=== PATIENT | female | born 1955 | race Caucasian/White ===

== ENCOUNTER 2024-07-06 20:06 | Emergency (ER) | payer MEDICARE, OTHER ==
[~2024-07-06] VITALS: Ht 170.2 cm; Wt 63.5 kg
[2024-07-06] MEDS ORDERED: SERT50TA PO (20:53)
[2024-07-06] MEDS ORDERED: SERT25TA PO (20:53)
[2024-07-06] MEDS ORDERED: LISI20TA30 PO (20:53)
[2024-07-06 21:32] LABS: BASOPHILS # (AUTO) 0.1 K/uL (0.0-0.2); BASOPHILS % (AUTO) 0.7 % (0.0-2.0); EOSINOPHILS # (AUTO) 0.2 K/uL (0.0-0.7); EOSINOPHILS % (AUTO) 3.3 % (0.0-6.0); HEMATOCRIT 42 % (33-45); HEMOGLOBIN 14.1 g/dL (11.5-14.8); MEAN CORPUSCULAR HEMOGLOBIN 31 PG (26.0-33.0); MEAN CORPUSCULAR HGB CONC 33 g/dl (31.0-36.0); MEAN CORPUSCULAR VOLUME 93 fL (82-100); MONOCYTES # (AUTO) 0.6 K/uL (0.1-1.30); MONOCYTES % (AUTO) 8.6 % (2.0-12.0); NEUTROPHILS # (AUTO) 4.4 K/uL (1.8-8.9); NEUTROPHILS % (AUTO) 60.4 % (43.0-81.0); PLATELET COUNT (AUTO) 247 K/uL (150-450); RED BLOOD CELL COUNT(AUTO) 4.52 MIL/uL (4.0-5.2); RED CELL DISTRIBUTION WIDTH 19.6 % (11.5-15.0); WHITE BLOOD COUNT (AUTO) 7.4 K/uL (4.3-11.0)
[2024-07-06 21:41] LABS: APPEARANCE,URINE Clear (CLEAR); BILIRUBIN,URINE Negative (NEGATIVE); BLOOD, URINE Negative Ery/uL (NEGATIVE); COLOR,URINE YELLOW (YELLOW); KETONES,URINE Negative (NEGATIVE); LEUKOCYTE ESTERASE ,URINE Trace (NEGATIVE); NITRITE, URINE Positive (NEGATIVE); PROTEIN,URINE Negative (NEGATIVE); UGLUCOSE Negative (NEGATIVE); UROBILINOGEN,URINE 0.2 EU/dL (0.2)
[2024-07-06 21:43] LABS: CALCIUM, SERUM 9.1 mg/dL (8.5-10.1); CARBON DIOXIDE 30 mmol/L (21-32); CHLORIDE 103 mmol/L (98-107); CREATININE 0.7 mg/dL (0.6-1.3); GLUCOSE 108 mg/dL (74-106); POTASSIUM 3.3 mmol/L (3.5-5.1); SODIUM SERUM 139 mmol/L (136-145); UREA NITROGEN, BLOOD 13 mg/dL (7-18)
[2024-07-06 21:45] LABS: ADD URINE CULTURE YES; BACTERIA,URINE 2+ /HPF (None Seen); MUCUS,URINE Few /LPF (None Seen); RBC,URINE 0-2 /HPF (0-2); URINE AMORPHOUS URATE Few /HPF (None Seen)
[2024-07-06 21:50] LABS: ALANINE AMINOTRANSFERASE 14 U/L (12-78); ALCOHOL, BLOOD 139 mg/dL (0-10); ALKALINE PHOSPHATASE 89 U/L (46-116); ASPARTATE AMINOTRANSFERASE 18 U/L (15-37); BILIRUBIN,DIRECT 0.1 mg/dL (0.0-0.2); BILIRUBIN,TOTAL 0.3 mg/dL (0.2-1.0); SALICYLATE 3.4 mg/dL (2.8-20.0)
[2024-07-06 21:51] LABS: ACETAMINOPHEN <10 ug/ml (10-30); ALBUMIN < 3.4 g/dL (3.4-5.0)
[2024-07-06 22:10] LABS: AMPHETAMINE, URINE NEGATIVE (NEGATIVE); BARBITURATE, URINE NEGATIVE (NEGATIVE); BENZODIAZEPINE, URINE NEGATIVE (NEGATIVE); CANNABINOID, URINE NEGATIVE (NEGATIVE); COCCAINE, URINE NEGATIVE (NEGATIVE); OPIATE, URINE NEGATIVE (NEGATIVE); PHENCYCLIDINE SCREEN,URINE NEGATIVE (NEGATIVE)
[2024-07-06] MEDS ORDERED: CEPHALEXIN MONOHYDRATE 500 MG CAPSULE PO ONE (22:41)
[2024-07-06] MEDS ORDERED: POTASSIUM CHLORIDE 20 MEQ TAB.PRT.SR PO ONE (22:41)
[2024-07-06] MEDS: CEPHALEXIN MONOHYDRATE 500 MG CAPSULE PO ONE (22:47)
[2024-07-06] MEDS: POTASSIUM CHLORIDE 20 MEQ TAB.PRT.SR PO ONE (22:47)
[2024-07-07 10:00] VITALS: TEMP 98.4
[2024-07-07 11:00] VITALS: BP 141/76; O2SAT 98
== END 2024-07-07 13:56 ==
LOC: ER 20:08
DX: S09.8XXD Other specified injuries of head, subsequent encounter (principal); I10 Essential (primary) hypertension; Z48.02 Encounter for removal of sutures; Z76.0 Encounter for issue of repeat prescription; Z20.822 Contact with and (suspected) exposure to COVID-19; X58.XXXD Exposure to other specified factors, subsequent encounter
CPT/HCPCS: 36415; 80048-TC; 80076-TC; 81001; 85025-TC; 87086-TC; G0480

== ENCOUNTER 2025-04-17 11:56 | Inpatient (IN) | payer MEDICARE, OTHER ==
[~2025-04-17] VITALS: Ht 167.6 cm; Wt 62.7 kg
[~2025-04-17 11:56] MED LIST: LISI20TA30 PO; SERT25TA PO; SERT50TA PO
[2025-04-17 12:28] LABS: APPEARANCE,URINE CLEAR (CLEAR); BILIRUBIN,URINE Negative (NEGATIVE); BLOOD, URINE Trace-intact Ery/uL (NEGATIVE); COLOR,URINE YELLOW (YELLOW); KETONES,URINE Negative (NEGATIVE); LEUKOCYTE ESTERASE ,URINE Moderate (NEGATIVE); NITRITE, URINE POSITIVE (NEGATIVE); PH,URINE 5.5 (5.0-8.0); PROTEIN,URINE Negative (NEGATIVE); UGLUCOSE Negative (NEGATIVE); UROBILINOGEN,URINE 0.2 EU/dL (0.2)
[2025-04-17] MEDS ORDERED: SERT50TA12 PO (12:29)
[2025-04-17] MEDS ORDERED: ERGO500093 PO (12:29)
[2025-04-17] MEDS ORDERED: AMLO-212 PO (12:29)
[2025-04-17] MEDS ORDERED: LISI10TA29 PO (12:29)
[2025-04-17] MEDS ORDERED: CELE-85 PO (12:29)
[2025-04-17 12:37] LABS: ADD URINE CULTURE YES; BACTERIA,URINE Many /HPF (None Seen); SQUAMOUS EPITHELIAL CELL,UR Few /HPF (None Seen); WBC,URINE 21-50 /HPF (0-3)
[2025-04-17 12:39] LABS: BASOPHILS % (AUTO) 0.9 % (0.0-2.0); EOSINOPHILS # (AUTO) 0.1 K/uL (0.0-0.7); EOSINOPHILS % (AUTO) 1.3 % (0.0-6.0); HEMATOCRIT 39 % (33-45); HEMOGLOBIN 13.5 g/dL (11.5-14.8); LYMPHOCYTES # (AUTO) 1.1 K/uL (0.8-4.8); LYMPHOCYTES % (AUTO) 24.6 % (20.0-44.0); MEAN CORPUSCULAR HEMOGLOBIN 33 PG (26.0-33.0); MEAN CORPUSCULAR HGB CONC 35 g/dl (31.0-36.0); MEAN CORPUSCULAR VOLUME 94 fL (82-100); MONOCYTES # (AUTO) 0.4 K/uL (0.1-1.30); MONOCYTES % (AUTO) 9.3 % (2.0-12.0); NEUTROPHILS % (AUTO) 63.9 % (43.0-81.0); PLATELET COUNT (AUTO) 223 K/uL (150-450); RED BLOOD CELL COUNT(AUTO) 4.14 MIL/uL (4.0-5.2); WHITE BLOOD COUNT (AUTO) 4.6 K/uL (4.3-11.0)
[2025-04-17 12:43] LABS: AMPHETAMINE, URINE NEGATIVE (NEGATIVE); BARBITURATE, URINE NEGATIVE (NEGATIVE); BENZODIAZEPINE, URINE NEGATIVE (NEGATIVE); CANNABINOID, URINE NEGATIVE (NEGATIVE); COCCAINE, URINE NEGATIVE (NEGATIVE); OPIATE, URINE NEGATIVE (NEGATIVE); PHENCYCLIDINE SCREEN,URINE NEGATIVE (NEGATIVE)
[2025-04-17 12:45] LABS: CALCIUM, SERUM 8.3 mg/dL (8.5-10.1); CARBON DIOXIDE 25 mmol/L (21-32); CHLORIDE 105 mmol/L (98-107); CREATININE 0.8 mg/dL (0.6-1.3); GLUCOSE 85 mg/dL (74-106); SODIUM SERUM 142 mmol/L (136-145); UREA NITROGEN, BLOOD 21 mg/dL (7-18)
[2025-04-17] MEDS ORDERED: NITROFURANTOIN/MONOHYDRATE MACROCRYSTALS 100 MG CAPSULE ONE (12:57)
[2025-04-17 12:59] LABS: ALANINE AMINOTRANSFERASE 12 U/L (12-78); ALBUMIN 3.5 g/dL (3.4-5.0); ALCOHOL, BLOOD 200 mg/dL (0-10); ALKALINE PHOSPHATASE 80 U/L (46-116); ASPARTATE AMINOTRANSFERASE 21 U/L (15-37); BILIRUBIN,DIRECT 0.2 mg/dL (0.0-0.2); BILIRUBIN,TOTAL 0.9 mg/dL (0.2-1.0); TOTAL PROTEIN, SERUM 6.7 g/dL (6.4-8.2)
[2025-04-17 13:00] LABS: SALICYLATE 1.6 mg/dL (2.8-20.0)
[2025-04-17 13:01] LABS: ACETAMINOPHEN <10 ug/ml (10-30)
[2025-04-17] MEDS: NITROFURANTOIN/MONOHYDRATE MACROCRYSTALS 100 MG CAPSULE PO ONE (13:01)
[2025-04-17] MEDS ORDERED: ACETAMINOPHEN 325 MG TABLET PO PRN (21:00)
[2025-04-17] MEDS ORDERED: MAG HYDROX/AL HYDROX/SIMETH 30 ML UDC PO PRN (21:00)
[2025-04-17] MEDS ORDERED: LORAZEPAM 0.5 MG TABLET PO PRN ×2 (21:00)
[2025-04-17] MEDS ORDERED: MAGNESIUM HYDROXIDE 30 ML UDC PO PRN (21:00)
[2025-04-17] MEDS ORDERED: TEMAZEPAM 7.5 MG CAPSULE PO PRN ×2 (21:00)
[2025-04-17 21:40] VITALS: BP 166/103; TEMP 98.1; O2SAT 96
[2025-04-17] MEDS: BLOOD SUGAR DIAGNOSTIC 1 EACH STRIP IN ONE (21:40)
[2025-04-17] MEDS: AMLODIPINE BESYLATE 5 MG TABLET PO SCH (21:59)
[2025-04-17] MEDS: POTASSIUM CHLORIDE 10 MEQ TABLET.SA PO SCH (22:10)
[2025-04-18 07:57] LABS: ALBUMIN 3.7 g/dL (3.4-5.0); BILIRUBIN,TOTAL 0.9 mg/dL (0.2-1.0); CALCIUM, SERUM 8.6 mg/dL (8.5-10.1); CREATININE 0.5 mg/dL (0.6-1.3); POTASSIUM 3.2 mmol/L (3.5-5.1); TOTAL PROTEIN, SERUM 6.7 g/dL (6.4-8.2)
[2025-04-18 08:00] VITALS: BP 140/83; TEMP 97.6; O2SAT 97
[2025-04-18 08:02] LABS: CHOLESTEROL 172 mg/dL (<200); HDL CHOLESTEROL 121 mg/dL (40-60); LDL 30 mg/dL (0-99); TRIGLYCERIDES 83 mg/dL (30-150)
[2025-04-18] MEDS: FOLIC ACID 1 MG TABLET PO SCH (09:05)
[2025-04-18] MEDS: THIAMINE HCL 100 MG TABLET PO SCH (09:06)
[2025-04-18] MEDS: NITROFURANTOIN/MONOHYDRATE MACROCRYSTALS 100 MG CAPSULE PO SCH (09:06)
[2025-04-18] MEDS: LISINOPRIL (10MG) 10 MG TABLET PO SCH (09:06)
[2025-04-18] MEDS: SERTRALINE HCL 50 MG TABLET PO SCH (13:25)
[2025-04-18 16:16] VITALS: BP 139/77; TEMP 97.8; O2SAT 98
[2025-04-18 20:00] VITALS: BP 121/60; TEMP 97.7; O2SAT 100
[2025-04-18 21:25] VITALS: BP 121/60; TEMP 97.7; O2SAT 100
[2025-04-19 07:50] LABS: CREATININE 0.6 mg/dL (0.6-1.3)
[2025-04-19 08:00] VITALS: BP 122/62; TEMP 98.6; O2SAT 98
[2025-04-19 16:11] VITALS: BP 100/72; TEMP 98.1; O2SAT 97
[2025-04-19] MEDS: POTASSIUM CHLORIDE 20 MEQ TAB.PRT.SR PO ONE (18:01)
[2025-04-19 20:05] VITALS: BP 108/68; TEMP 98.8; O2SAT 97
[2025-04-20 08:00] VITALS: BP 106/80; TEMP 97.5; O2SAT 97
[2025-04-20 16:00] VITALS: BP 118/87; TEMP 98; O2SAT 99
[2025-04-20 20:39] VITALS: BP 124/94; TEMP 98.1; O2SAT 96
[2025-04-21 05:51] VITALS: BP 124/94; TEMP 98.1; O2SAT 96
[2025-04-21 08:00] VITALS: BP 125/79; TEMP 98.6; O2SAT 98
[2025-04-21 16:00] VITALS: BP 138/80; TEMP 98; O2SAT 96
[2025-04-21 20:10] VITALS: BP 132/86; TEMP 98; O2SAT 96
[2025-04-22 08:00] VITALS: BP 114/65; TEMP 98; O2SAT 97
[2025-04-22 16:00] VITALS: BP 141/88; TEMP 98; O2SAT 100
[2025-04-22 20:32] VITALS: BP 121/69; TEMP 98.1; O2SAT 98
[2025-04-23 08:00] VITALS: BP 115/72; TEMP 97.7; O2SAT 97
[2025-04-23 16:01] VITALS: BP 131/67; TEMP 98.7; O2SAT 98
[2025-04-23 20:13] VITALS: BP 125/65; TEMP 98.2; O2SAT 96
[2025-04-24 08:00] VITALS: BP 113/77; TEMP 98.6; O2SAT 96
[2025-04-24 15:39] VITALS: BP 119/81; TEMP 98.2; O2SAT 97
[2025-04-24 16:00] VITALS: BP 119/81; TEMP 98.2; O2SAT 97
[2025-04-24 20:05] VITALS: BP 127/89; TEMP 98.2; O2SAT 97
[2025-04-24 20:22] VITALS: BP 127/89; TEMP 98.2; O2SAT 97
[2025-04-25 08:00] VITALS: BP 108/61; TEMP 97.8; O2SAT 97
[2025-04-25 16:00] VITALS: BP 110/59; TEMP 98.6; O2SAT 97
[2025-04-25 19:36] LABS: APPEARANCE,URINE CLEAR (CLEAR); BILIRUBIN,URINE NEGATIVE (NEGATIVE); BLOOD, URINE NEGATIVE Ery/uL (NEGATIVE); COLOR,URINE YELLOW (YELLOW); KETONES,URINE NEGATIVE (NEGATIVE); LEUKOCYTE ESTERASE ,URINE NEGATIVE (NEGATIVE); NITRITE, URINE NEGATIVE (NEGATIVE); PROTEIN,URINE NEGATIVE (NEGATIVE); UGLUCOSE NEGATIVE (NEGATIVE); UROBILINOGEN,URINE 0.2 EU/dL (0.2)
[2025-04-25 20:21] VITALS: BP 105/56; TEMP 98.6; O2SAT 96
[2025-04-26 08:00] VITALS: BP 145/75; TEMP 97.7; O2SAT 95
[2025-04-26 16:00] VITALS: BP 147/72; TEMP 98.1; O2SAT 99
[2025-04-26 16:01] VITALS: BP 95/68; TEMP 98.2; O2SAT 96
[2025-04-26 20:08] VITALS: BP 117/66; TEMP 97.7; O2SAT 97
[2025-04-27 08:00] VITALS: BP 128/92; TEMP 98; O2SAT 96
[2025-04-27 08:26] VITALS: BP 128/92
== END 2025-04-27 13:35 | DRG 885 ==
LOC: ER 12:07 → GPS 16:46
PROVIDERS: ADMIT Psychiatry & Neurology Psychosomatic Medicine; ATTEND Nurse Practitioner Family
DX: F33.9 Major depressive disorder, recurrent, unspecified (principal); N39.0 Urinary tract infection, site not specified; R45.851 Suicidal ideations; F17.210 Nicotine dependence, cigarettes, uncomplicated; E86.0 Dehydration; F10.129 Alcohol abuse with intoxication, unspecified; Y90.7 Blood alcohol level of 200-239 mg/100 ml; B96.20 Unspecified Escherichia coli [E. coli] as the cause of diseases classified elsewhere; Z88.5 Allergy status to narcotic agent; T43.226A Underdosing of selective serotonin reuptake inhibitors, initial encounter; T46.5X6A Underdosing of other antihypertensive drugs, initial encounter; Z91.148 Patient's other noncompliance with medication regimen for other reason; Y92.099 Unspecified place in other non-institutional residence as the place of occurrence of the external cause; G62.9 Polyneuropathy, unspecified; G47.00 Insomnia, unspecified; F41.9 Anxiety disorder, unspecified; E87.6 Hypokalemia; R79.89 Other specified abnormal findings of blood chemistry; R41.9 Unspecified symptoms and signs involving cognitive functions and awareness
CPT/HCPCS: 36415; 80048-TC; 80053-TC; 80061-TC; 80076-TC; 81001; 82565-TC; 82962-TC; 85025-TC; 87086-TC; 87186-TC; G0480